=== PATIENT | male | born 1960 | race Two or more races ===

== ENCOUNTER 2023-06-13 10:26 | Emergency (ER) | payer OTHER, SELFPAY ==
--- NOTE | ~2023-06-13 | CT_ITS ---
EXAMINATION: CT ABDOMEN AND PELVIS WITH CONTRAST CLINICAL INFORMATION: Right lower quadrant tenderness. COMPARISON: None available. TECHNIQUE: Multidetector volumetric images were obtained from the superior aspect of the liver through the pubic symphysis following administration 85 mL of Omnipaque 350 intravenous contrast. Sagittal and coronal reformatted images were obtained on the technologist's workstation. Oral contrast: Yes. This CT examination was performed using dose optimization techniques as appropriate, variously including the following: *Automated exposure control *Adjustment of mA and/or kV according to patient size (this includes techniques or standardized protocols for targeted exams where dose is matched to indication/reason for exam; i.e. extremities or head) *Use of iterative reconstruction technique DLP: 465 mGy-cm FINDINGS: LUNG BASES: No pulmonary consolidation or pleural effusion. HEPATOBILIARY: The liver has normal size, shape, and attenuation. Gallbladder has a normal appearance. No radiopaque stones, wall thickening or pericholecystic fluid. No dilated bile ducts. PANCREAS: Mildly atrophied. No edema, pancreatic ductal dilatation or mass. SPLEEN: Normal. ADRENAL GLANDS: Normal. KIDNEYS AND URETERS: The kidneys enhance symmetrically and have normal size and cortical thickness. No perinephric fluid collection, urolithiasis or hydroureteronephrosis. BLADDER: Underdistended and without any focal abnormality. No bladder calculi. Borderline diffuse thickening of the bladder wall (possible mild detrusor muscle hypertrophy). BOWEL AND PERITONEUM: Stomach is unremarkable. No dilated loops of bowel. The appendix is normal. No overt bowel wall thickening. No free fluid or pneumoperitoneum. There is minimal haziness of some of the central mesenteric fat (e.g., images 37-43, series 3). There is no associated mesenteric lymphadenopathy.. ABDOMINAL WALL: No significant findings. VASCULATURE: Mild atherosclerosis of the abdominal aorta without aneurysm or dissection. LYMPH NODES: No pathologic sized lymph nodes in the abdomen or pelvis. No inguinal lymphadenopathy. PELVIC VISCERA: Prominent prostate gland is 4.8 x 3.7 x 4 cm. MUSCULOSKELETAL: Mild and moderate discovertebral degenerative changes of the visualized lower thoracic and lumbar spine. No acute or suspicious osseous abnormality. CT/CT abdomen pelvis w IV con IMPRESSION: * The appendix is normal. No specific source of right lower quadrant pain is identified. * No abdominal free fluid or free air. * Mild prostatomegaly. * The haziness of some of the central mesenteric fat is suggestive of minimal mesenteric panniculitis.
--- NOTE | ~2023-06-13 | XR_ITS ---
EXAMINATION: XR CHEST CLINICAL INFORMATION: Fever and cough COMPARISON: None available. TECHNIQUE: 2 views of the chest were obtained. FINDINGS: No significant abnormality is noted involving the heart, lungs, mediastinum, bony thorax or soft tissues. XR/XR chest 2V IMPRESSION: Unremarkable chest examination.
[2023-06-13 10:27] VITALS: BP 129/71; PULSE 104; RESP 20; TEMP 36.9; O2SAT 97; BMI 28.3
--- NOTE | 2023-06-13 11:01 | ECG_ITS ---
Test Reason : CHEST PAIN Blood Pressure : / mmHG Vent. Rate : 078 BPM Atrial Rate : 078 BPM P-R Int : 146 ms QRS Dur : 104 ms QT Int : 368 ms P-R-T Axes : 047 -44 008 degrees QTc Int : 419 ms Normal sinus rhythm Left axis deviation Incomplete right bundle branch block Abnormal ECG No previous ECGs available Referred By: Hanna Celis Electronically Signed By:RACHAEL CAMARILLO
--- NOTE | 2023-06-13 11:01 | ED.GENADULT ---
HPI - General Adult General Chief complaint: Abdominal Pain Stated complaint: Cold symptoms 3 days Time Seen by Provider: 06/13/23 11:00 Source: patient, family and sales representative aircraft Mode of arrival: ambulatory Limitations: language barrier History of Present Illness HPI narrative: Patient is a 62-year-old Dutch-speaking male with history of smoking presenting to the emergency department with complaint of right lower quadrant abdominal pain and diarrhea for the past 3 days. Yesterday felt sweats, did not check temperature with thermometer. Denies nausea or vomiting. Denies hematochezia or melena. Denies dysuria, frequency, hematuria or other urinary symptoms. Reports baseline cough due to smoking. States grandchildren have been sick with fevers and headaches. Took Pepto Bismol which did not help with diarrhea, then took Immodium which did decrease his diarrhea. MD complaint: abdominal pain, diarrhea Onset (ago): day(s) Location: abdomen Radiation: non-radiation Severity: moderate Quality: aching Pain Consistency: constant Relieving factors: none Exacerbating factors: none Associated symptoms: other Treatments prior to arrival: other Related Data Allergies Allergy/AdvReac Type Severity Reaction Status Date / Time Penicillins Allergy Unknown Verified 06/13/23 10:32 Review of Systems Review of Systems: As per HPI. Yes all other systems are reviewed and are negative Constitutional: Constitutional: Reports as per HPI [facility] Social History Social History Smoked in Last 30 Days: Yes Use of substances other than those prescribed or required for medical reasons: No Advance Directives: No Advance Directives Information Provided: Yes Physical Exam ED Vital Signs: Vital Signs - 24 hr 06/13/23 10:27 06/13/23 11:34 06/13/23 13:51 Temperature 98.5 F 98.5 F 97.6 F Pulse Rate 104 H 83 75 Respiratory Rate 20 16 16 Blood Pressure 129/71 111/72 110/68 Pulse Oximetry 97 97 97 Oxygen Delivery Method Room Air Room Air Room Air BMI result Body Mass Index 28.3 Vital signs have been reviewed and appear to be correct. Blood pressure normal. Heart rate normal. Respiratory rate normal. Temperature normal. Oxygen saturation normal. Const General: cooperative, healthy appearing and no acute distress Orientation/consciousness: oriented to person, oriented to place, oriented to time and patient oriented x3 Limitations: no limitations HENMT Head: Yes normocephalic and Yes atraumatic Ears: external ears normal General nose exam: Normal external nose present Face and sinus: Yes face symmetric Mouth: oropharynx normal and moist mucous membranes Throat: Yes uvula midline Eyes Pupils: Equal, round and reactive pupils present Neck Neck: Yes normal visual inspection and Yes supple Resp Effort & Inspection: normal respiratory effort and able to speak in complete sentences Auscultation: clear to auscultation bilaterally Cardio Rate: regular rate Rhythm: regular rhythm Heart sounds: S1 normal heart sound present and S2 normal heart sound present GI Palpation (GI): Soft to palpation, Tenderness to palpation present (GI) in the RLQ, no guarding and No Rebound tenderness present Auscultation: normoactive bowel sounds General: Yes no CVA tenderness Back/Spine/Pelvis Back: no CVA tenderness Skin General skin exam: elasticity normal and turgor normal Neuro General: oriented to person, oriented to place, oriented to time, patient oriented x3, moves all extremities, no focal motor deficits and CN's II-XI intact bilaterally Cranial nerves: Yes Equal, round and reactive pupils present Cognition (Neuro): normal cognition Extrem General: Yes full ROM, Yes no pedal edema and Yes no calf tenderness Psych Mental Status: mental status grossly normal Affect: normal affect Thought process: Normal thought process present Medications Administered Discontinued Medications Generic Name Dose Route Start Last Admin Trade Name Freq PRN Reason Stop Dose Admin Sodium Chloride 1,000 mls @ 999 mls/hr 06/13/23 13:15 06/13/23 13:48 Ns IV 06/13/23 14:15 999 mls/hr .Q1H1M JONO Administration Iohexol 85 ml 06/13/23 12:32 06/13/23 12:32 Iohexol 350 Mg/Ml 100 Ml Infus..Btl IV 06/13/23 12:33 85 ml ONCE ONE Administration Medical Decision Making Medical Decision Making [facility] Narrative: Patient is a 62-year-old Dutch-speaking male with history of smoking presenting to the emergency department with complaint of right lower quadrant abdominal pain and diarrhea for the past 3 days. On exam patient is awake, A+Ox3, VS WNL, afebrile, normal neurological exam without focal deficits, physical exam findings as above. Given reported symptoms and physical exam findings, initial differential includes diverticulitis, appendicitis, obstruction, gastroenteritis. Labs notable for leukopenia, no left shift, no anemia, no significant electrolyte abnormalities, no evidence of YVONNE, normal LFTs. No evidence of infection on urinalysis. CT notable for no acute abnormalities. My interpretation is in agreement with the radiologist's interpretation. Results discussed with patient and all questions answered. Patient is outside the window for treatment with Tamiflu. Advised patient to ensure adequate fluid intake and adequate rest, isolate at home for another 3 days and continue or mask or symptomatic after that. Instructed patient to follow-up with primary care provider. Advised patient he can use Tylenol or ibuprofen as needed for fever or discomfort and can continue to take Imodium for diarrhea. Return precautions discussed at bedside. Patient verbalized understanding of and agreement with plan. Differential Diagnosis Differential Diagnoses: The differential diagnosis associated with the presentation includes As per [facility]. Admission/Observation Consideration of admission/observation: Escalation of care including admission/observation considered Lab Data [facility] Lab Attestation statement: I reviewed the patient's lab results. As per MDM. 06/13/23 11:30 06/13/23 11:29 Labs: Lab Results 06/13/23 06/13/23 06/13/23 Range/Units 11:28 11:29 11:30 WBC 3.7 L (4.8-10.8) X10*3/uL RBC 4.94 (4.60-5.80) X10*6/uL Hgb 14.6 (14.0-18.0) g/dl Hct 43.0 (42.0-52.0) % MCV 87.0 (80.0-98.0) fL MCH 29.6 (27.0-33.0) pg MCHC 34.0 (31.0-36.0) g/dl RDW 13.7 (11.0-16.0) % Plt Count 215 (160-400) X10*3/uL MPV 9.9 (9.4-12.4) fL Immature Gran % (Auto) 0.3 (0.0-0.4) % Neut % (Auto) 46.9 (45-73) % Lymph % (Auto) 34.4 (20-40) % [facility] % (Auto) 17.3 H (2-11) % Eos % (Auto) 0.3 (0-4) % Baso % (Auto) 0.8 (0-2) % Lymph # (Auto) 1.3 (1.2-4.9) X10*3/uL [facility] # (Auto) 0.6 (0.1-1.2) X10*3/uL Eos # (Auto) 0.0 (0.0-0.4) X10*3/uL Baso # (Auto) 0.0 (0.0-0.2) X10*3/uL Abs Immat Gran (auto) 0.01 (0.00-0.03) X10*3/uL Absolute Neuts (auto) 1.7 L (2.0-8.3) x10*3/uL Absolute Nucleated RBC 0.000 (0.0-0.012) X10*3/uL Nucleated RBC % (auto) 0.0 (0.0-0.2) /100WBC PT 13.0 (11.1-13.3) SEC INR 1.1 (0.9-1.1) Sodium 134 L (135-145) mmol/L Potassium 3.7 (3.3-5.1) mmol/L Chloride 102 (96-108) mmol/L Carbon Dioxide 24 (22-29) mmol/L Anion Gap 12 (12-20) BUN 13 (9-16) mg/dL Creatinine 1.03 (0.5-1.4) mg/dL Estim Creat Clear Calc 72.7 Estimated GFR > 60 Random Glucose 87 (60-115) mg/dL Lactic Acid 0.7 (0.5-2.0) mmol/L Calcium 8.4 (8.4-10.2) mg/dL Total Bilirubin 0.2 (0.0-1.0) mg/dL AST 24 (5-37) U/L ALT 22 (0-40) U/L Alkaline Phosphatase 73 (39-117) U/L Troponin I High Sens 11.2 (<3.5-35.0) ng/L Total Protein 6.3 L (6.5-8.0) g/dL Albumin 3.5 (3.5-5.0) g/dL Urine Color Urine Appearance Urine pH (5.0-9.0) Ur Specific [place] (1.005-1.025) Urine Protein (Neg-Trace) mg/dL Urine Glucose (UA) (Negative) mg/dL Urine Ketones (Negative) mg/dL Urine Blood (Negative) Urine Nitrite (Negative) Ur Leukocyte Esterase (Negative) Urine RBC (0-2) /HPF Urine WBC (0-5) /HPF Ur Squamous Epith Cells (0-2) /HPF Urine Bacteria (None Seen) Hyaline Casts (0-2) /LPF COVID-19 (RAFAEL) Negative (Negative) COVID-19 Clin Com See Note Influenza Type A (JAMIR) Positive A (Negative) Influenza Type B (JAMIR) Negative (Negative) Influenza A & B Note See Note 06/13/23 Range/Units 12:13 WBC (4.8-10.8) X10*3/uL RBC (4.60-5.80) X10*6/uL Hgb (14.0-18.0) g/dl Hct (42.0-52.0) % MCV (80.0-98.0) fL MCH (27.0-33.0) pg MCHC (31.0-36.0) g/dl RDW (11.0-16.0) % Plt Count (160-400) X10*3/uL MPV (9.4-12.4) fL Immature Gran % (Auto) (0.0-0.4) % Neut % (Auto) (45-73) % Lymph % (Auto) (20-40) % [facility] % (Auto) (2-11) % Eos % (Auto) (0-4) % Baso % (Auto) (0-2) % Lymph # (Auto) (1.2-4.9) X10*3/uL [facility] # (Auto) (0.1-1.2) X10*3/uL Eos # (Auto) (0.0-0.4) X10*3/uL Baso # (Auto) (0.0-0.2) X10*3/uL Abs Immat Gran (auto) (0.00-0.03) X10*3/uL Absolute Neuts (auto) (2.0-8.3) x10*3/uL Absolute Nucleated RBC (0.0-0.012) X10*3/uL Nucleated RBC % (auto) (0.0-0.2) /100WBC PT (11.1-13.3) SEC INR (0.9-1.1) Sodium (135-145) mmol/L Potassium (3.3-5.1) mmol/L Chloride (96-108) mmol/L Carbon Dioxide (22-29) mmol/L Anion Gap (12-20) BUN (9-16) mg/dL Creatinine (0.5-1.4) mg/dL Estim Creat Clear Calc Estimated GFR Random Glucose (60-115) mg/dL Lactic Acid (0.5-2.0) mmol/L Calcium (8.4-10.2) mg/dL Total Bilirubin (0.0-1.0) mg/dL AST (5-37) U/L ALT (0-40) U/L Alkaline Phosphatase (39-117) U/L Troponin I High Sens (<3.5-35.0) ng/L Total Protein (6.5-8.0) g/dL Albumin (3.5-5.0) g/dL Urine Color Yellow Urine Appearance Clear Urine pH 5.5 (5.0-9.0) Ur Specific [place] 1.020 (1.005-1.025) Urine Protein Negative (Neg-Trace) mg/dL Urine Glucose (UA) Negative (Negative) mg/dL Urine Ketones Negative (Negative) mg/dL Urine Blood Small (1+) H (Negative) Urine Nitrite Negative (Negative) Ur Leukocyte Esterase Negative (Negative) Urine RBC 3-5 H (0-2) /HPF Urine WBC 0-5 (0-5) /HPF Ur Squamous Epith Cells 0-2 (0-2) /HPF Urine Bacteria None Seen (None Seen) Hyaline Casts 0-2 (0-2) /LPF COVID-19 (RAFAEL) (Negative) COVID-19 Clin Com Influenza Type A (JAMIR) (Negative) Influenza Type B (JAMIR) (Negative) Influenza A & B Note Independent Interpretation I performed an independent interpretation of an: EKG (normal sinus rhythm, rate 78 bpm, normal pr interval and QTc) and CT Scan Interpretation: No acute abnormalities on CT abdomen/pelvis Radiology Impression Discussion of test interpretation with radiology: I have reviewed the radiologist's reading. Radiologist Impression: CT/CT abdomen pelvis w IV con IMPRESSION: * The appendix is normal. No specific source of right lower quadrant pain is identified. * No abdominal free fluid or free air. * Mild prostatomegaly. * The haziness of some of the central mesenteric fat is suggestive of minimal mesenteric panniculitis. External Record Review External record reviewed: Inpatient record, Office record and Outpatient record Prescription Management I considered prescription management with: Antiviral (Patient outside treatment window) Discharge Plan Discharge Clinical Impression: Influenza A Patient Disposition: Home, Self-Care Instructions: Influenza (DC), Flu Shot (Vaccine) for Adults (ED), Droplet Precautions (ED) Additional Instructions: You were evaluated in the emergency department today for abdominal pain and diarrhea. Your flu test was positive. You should isolate at home for another 3 days and continue to wear mask or symptomatic after that. Your symptoms should resolve over time with rest and fluids. You can take 650 mg Tylenol or 600 mg ibuprofen every 6 hours as needed for fever or pain. Be sure to drink plenty of fluids and get plenty of rest. Please follow-up with your primary care provider for any ongoing symptoms. Return to the emergency department if you develop worsening pain, fever not controlled with Tylenol and ibuprofen, chest pain, dizziness or lightheadedness, or any other concerning symptoms.
[2023-06-13 11:34] VITALS: BP 111/72; PULSE 83; RESP 16; TEMP 36.9; O2SAT 97
[2023-06-13 11:42] LABS: MANUAL DIFF FLAG NO
[2023-06-13 11:44] LABS: Basophils Percent Auto 0.8 % (0-2); Eosinophils Percent Auto 0.3 % (0-4); Hemoglobin 14.6 g/dl (14.0-18.0); Imm Gran Abs Auto 0.01 X10*3/uL (0.00-0.03); Imm Gran Pct Auto 0.3 % (0.0-0.4); Lymphocytes Absolute Auto 1.3 X10*3/uL (1.2-4.9); Lymphocytes Percent Auto 34.4 % (20-40); Mean Corpuscular Hemoglobin 29.6 pg (27.0-33.0); Mean Platelet Volume 9.9 fL (9.4-12.4); Monocytes Absolute Auto 0.6 X10*3/uL (0.1-1.2); Monocytes Percent Auto 17.3 % (2-11); Neutrophils Absolute Auto 1.7 x10*3/uL (2.0-8.3); Neutrophils Percent Auto 46.9 % (45-73); Platelet Count 215 X10*3/uL (160-400); Red Blood Count 4.94 X10*6/uL (4.60-5.80); Red Cell Distribution Width 13.7 % (11.0-16.0); White Blood Count 3.7 X10*3/uL (4.8-10.8)
[2023-06-13 11:50] LABS: INTERNATIONAL NORM RATIO 1.1 (0.9-1.1)
[2023-06-13 11:53] LABS: Lactic Acid 0.7 mmol/L (0.5-2.0)
[2023-06-13 11:58] LABS: Alanine Aminotransferase 22 U/L (0-40); Albumin Level 3.5 g/dL (3.5-5.0); Alkaline Phosphatase 73 U/L (39-117); Anion Gap 12 (12-20); Aspartate Amino Transferase 24 U/L (5-37); Bilirubin Total 0.2 mg/dL (0.0-1.0); Blood Urea Nitrogen 13 mg/dL (9-16); Calcium 8.4 mg/dL (8.4-10.2); Carbon Dioxide 24 mmol/L (22-29); Chloride 102 mmol/L (96-108); Creatinine Clr Calc Pharmacy 72.7; Estimated Glomerular Filt Rate > 60; Glucose Random 87 mg/dL (60-115); Potassium 3.7 mmol/L (3.3-5.1); Sodium 134 mmol/L (135-145); Total Protein 6.3 g/dL (6.5-8.0)
[2023-06-13 12:05] LABS: Troponin-I High Sensitivity 11.2 ng/L (<3.5-35.0)
[2023-06-13 12:11] LABS: IDNOW Serial# 08D9AD1C; Influenza A Positive (Negative); Influenza B2 Negative (Negative)
[2023-06-13 12:17] LABS: COVID-19 Test Negative (Negative); IDNOW Serial# 152EDE1D
[2023-06-13 12:27] LABS: Appearance Urine Clear; Color Urine Yellow; Glucose Urine UA Negative (Negative); Leukocyte Esterase Urine Negative (Negative); Nitrite Urine Negative (Negative); PH 5.5 (5.0-9.0); UMIC TRIGGER UACC YES; Urine Blood Small (1+) (Negative); Urine Ketones Negative (Negative); Urine Protein Negative (Neg-Trace)
[2023-06-13] MEDS: iohexoL 350 MG/ML 100 ML INFUS..BTL 85 ML IV (12:32)
[2023-06-13 12:47] LABS: Bacteria Urine None Seen (None Seen); Hyaline Casts Urine 0-2 /LPF (0-2); Squamous Epithelial Cell Urine 0-2 /HPF (0-2); WBC Urine 0-5 /HPF (0-5)
[2023-06-13] MEDS: 0.9 % Sodium Chloride 1,000 ML 999 ML IV (13:48)
[2023-06-13 13:51] VITALS: BP 110/68; PULSE 75; RESP 16; TEMP 36.4; O2SAT 97
[2023-06-13 15:17] VITALS: BP 117/72; PULSE 78; RESP 16; TEMP 36.6; O2SAT 98
== END 2023-06-13 15:19 | disposition home or self-care (01) ==
PROVIDERS: Registered Nurse Emergency; Emergency Provider Emergency Medicine
DX: J10.1 Influenza due to other identified influenza virus with other respiratory manifestations (principal); R10.31 Right lower quadrant pain; Z11.52 Encounter for screening for COVID-19
CPT/HCPCS: 71046; 74177; 80053; 81001; 83605; 84484; 85025; 85610; 87040; 87502; 87635; 93005; 99284; 99285; Q9967

== ENCOUNTER → 2023-06-13 11:01 | Outpatient (BNV) | payer OTHER, SELFPAY | PROVIDERS: Emergency Provider Emergency Medicine; Visit Provider Internal Medicine | DX: R94.31 Abnormal electrocardiogram [ECG] [EKG] (principal) | CPT/HCPCS: 93010 ==